=== PATIENT | female | born 1995 | race Caucasian/White ===

== ENCOUNTER 2025-03-20 12:10 | Outpatient (RCR) | payer BC, SELFPAY ==
--- OUTSIDE RECORDS SUMMARY | 2025-03-18 14:21 | XMS_ITS | Clinical Summary ---
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 Immunizations Immunization Administration Dates Next Due Influenza, Unspecified 04/24/2024(Deferr ed: Patient decision),04/24/2024(Deferred: Patient decision),04/24/2023(Deferred: Patient decision) Pfizer SARS-CoV-2 Monovalent Vaccination (12+ Yrs) CHAWLA-READY TO USE 11/13/2021 Pfizer SARS-CoV-2 Monovalent Vaccination (12+ Yrs) PURPLE 11/14/2020 Tdap 02/22/2022 Surgical History Surgery Date Site/Laterality Comments SECTION Medical History Medical History Date Comments Varicella Family History Medical History Relation Name Comments No Known Problems Brother 1 No Known Problems Brother 2 Hypertension Father No Known Problems Mother Heart disease Other Breast cancer Neg Hx Colon cancer Neg Hx Relation Name Status Comments Brother 1 Alive Brother 2 Alive Father Alive Maternal Grandfather Maternal Grandmother Alive Mother Alive Other Paternal Grandfather Paternal Grandmother Alive Social History Tobacco Use Types Packs/Day Years Used Date Smoking Tobacco: Never Smokeless Tobacco: Never Tobacco Cessation:Counseling Given: Not Answered AUDIT-C Answer Date Recorded Q1: How often do you have a drink containing alc ohol? 2-3 times a week 11/19/2024 Q2: How many drinks containi ng alcohol do you have on a typical day when you are drinking? 1 or 2 11/19/2024 Q3: How often do you have si x or more drinks on one occasion? Never 11/19/2024 PHQ-2 Answer Date Recorded PHQ-2 Total Score (If total score is 3 or more points, staff should administer the PHQ-9) 0 11/19/2024 PHQ-9 Answer Date Recorded PHQ-9 Total Score 1 11/19/2024 Comments No Sex and Gender Information Value Date Recorded Sex Assigned at Not on file Legal Sex Female 12:37 PM DATA WAREHOUSE ADMINISTRATOR Gender Identity Not on file Sexual Orientation Not on file Obstetrics History Last Filed Vital Signs Vital Sign Reading Time Taken Comments Blood Pressure 118/66 11/19/2024 8:58 AM CDT Pulse 65 11/19/2024 8:58 AM CDT Temperature 36.3 C (97.4 F) 11/19/2024 8:58 AM CDT Respiratory Rate 14 11/19/2024 8:58 AM CDT Oxygen Saturation 99% 11/19/2024 8:58 AM CDT Inhaled Oxygen Concentration - - Weight 70.4 kg (155 lb 1.6 oz) 11/19/2024 8:58 A M CDT Height 157.5 cm (5' 2) 11/19/2024 8:58 AM CDT Body Mass Index 28.37 11/19/2024 8:58 AM CDT Plan of Treatment Health Maintenance Due Date Last Done Comments Cervical Cancer Screening 1994 Hepatitis C Screening 1994 Hepatitis B Screening 2012 Regular Well Visit/Exam 18-64 2012 HPV Vaccines (1 - 3-dose SCDM series) 2021 Covid-19 Vaccine ( season) 2024 11/13/2021, 11/14/2020, 10/25/2020 Influenza Vaccine (#1) 2025 Depression Screening 11/19/2025 11/19/2024, 11/19/2024, 09/25/2024, Additional history exists DTaP/Tdap/Td Vaccine (2 - Td or Tdap) 02/23/2032 02/22/2022 Pneumococcal vaccine <65 Aged Out No longer eligible based on patient's age to complete this topic Insurance [employer] OOS Care Teams Sports Physician Relationship Specialty Start Date End Date Erin Burgos PA [address] [place] [address] PCP - General Family Medicine 11/19/24
--- OUTSIDE RECORDS SUMMARY | 2025-03-18 14:21 | XMS_ITS | Clinical Summary ---
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 Gender Identity Not on file Sexual Orientation Not on file Plan of Treatment Health Maintenance Due Date Last Done Comments Hepatitis C Virus (HCV) Screening 1994 TdaP Immunization 1994 Hepatitis B Immunization (1 of 3 - 19+ 3-dose series) 2013 Pap Smear 2015 Human Papillomavirus (HPV) Immunization (1 - 3-dose SCDM series) 2021 SARS-COV-2 Immunization ( season) 2024 Cervical Cancer Screening (CCS) 2024 HPV/Cotest 2024 Influenza Immunization (#1) 2025 Respiratory Syncytial Virus (RSV) Immunization (Adult) (1 - 1-dose 75+ series) 2069 Meningococcal Immunization (ACWY) Aged Out No longer eligible based on patient's age to complete this topic Pneumococcal Immunization Combined Aged Out No longer eligible based on patient's age to complete this topic Rotavirus Immunization Aged Out No lo nger eligible based on patient's age to complete this topic
[2025-03-18 15:30] LABS: Beta HCG Quantitative 9.94 mIU/ML
[2025-03-20 13:03] LABS: Beta HCG Quantitative 4.67 mIU/ML
== END 2025-06-16 23:59 | disposition home or self-care (01) ==
LOC: ANHLAB 12:10
PROVIDERS: Visit Provider Obstetrics & Gynecology
DX: Z36.89 Encounter for other specified antenatal screening (principal)
CPT/HCPCS: 36415; 84702; 85461; 86850; 86900; 86901